=== PATIENT | male | born 1985 | race Caucasian/White ===

== ENCOUNTER 2025-04-01 08:26 | Day surgery (SDC) | payer BC, OTHER ==
[~2025-04-01 08:26] MED LIST: Propofol 200 MG/20 ML SDV ONE; fentaNYL 100 MCG/2 ML SDV ONE
[2025-04-01] MEDS: Lactated Ringers 1,000 ML IV SCH (08:47)
[2025-04-01] MEDS ORDERED: Propofol 200 MG/20 ML SDV ONE (11:07)
== END 2025-04-01 12:23 | disposition home or self-care (01) ==
LOC: VM.SDS 08:26
PROVIDERS: ATTEND Family Medicine
DX: C18.7 Malignant neoplasm of sigmoid colon (principal); E66.01 Morbid (severe) obesity due to excess calories; F17.210 Nicotine dependence, cigarettes, uncomplicated; Z80.0 Family history of malignant neoplasm of digestive organs; Z68.35 Body mass index [BMI] 35.0-35.9, adult
CPT/HCPCS: 00811; J2704; J3010; J7120